=== PATIENT | male | born 1970 | race Caucasian/White ===

== ENCOUNTER 2017-08-26 11:51 | Emergency (ER) | payer OTHER ==
[~2017-08-26] VITALS: Ht 165.1 cm; Wt 120.2 kg
[~2017-08-26 11:51] MED LIST: CYCL10TA14; FURO20TA8; HYDROCODON-ACETAMINOPHN 10-325; METO50TA9; SPIR25TA13; TEMA30CA12
[2017-08-26 12:36] VITALS: BP 129/66
[2017-08-26] MEDS ORDERED: KETOROLAC 30 MG/ML VIAL IM ONE (14:05)
[2017-08-26 14:46] LABS: BASOPHILS # (AUTO) 0.1 K/uL (0.00-0.22); EOSINOPHILS # (AUTO) 0.1 K/uL (0-0.4); HEMATOCRIT 27.1 % (36-52); HEMOGLOBIN 8.4 g/dL (12.0-18.0); LYMPHOCYTES # (AUTO) 0.7 K/uL (2.0-11.5); MEAN CORPUSCULAR HEMOGLOBIN 23 pg (27-31); MEAN CORPUSCULAR HGB CONC 31 g/dL (33-37); MEAN CORPUSCULAR VOLUME 73 fL (80-94); MONOCYTES # (AUTO) 0.2 K/uL (0.8-1.0); NEUTROPHILS # (AUTO) 1.4 K/uL (1.8-7.7); PLATELET COUNT (AUTO) 69 K/uL (140-450); RED BLOOD CELL COUNT(AUTO) 3.71 MIL/uL (4.20-6.10); RED CELL DISTRIBUTION WIDTH 16.6 % (11.6-13.7); WHITE BLOOD COUNT (AUTO) 2.5 K/uL (4.8-10.8)
[2017-08-26 14:49] LABS: APPEARANCE,URINE CLEAR (CLEAR); BILIRUBIN,URINE NEGATIVE (NEGATIVE); BLOOD, URINE NEGATIVE (NEGATIVE); LEUKOCYTE ESTERASE ,URINE NEGATIVE (NEGATIVE); NITRITE, URINE NEGATIVE (NEGATIVE); UGLUCOSE NEGATIVE (NEGATIVE)
[2017-08-26] MEDS ORDERED: ACETAMINOPHEN 650 MG/20.3 ML UDC PO ONE (14:50)
[2017-08-26 14:52] LABS: COLOR,URINE YELLOW (YELLOW)
[2017-08-26 14:52] LABS: ANION GAP 8.1 (8-16); CARBON DIOXIDE 29.8 mmol/L (21-32); CREATININE 0.7 mg/dL (0.7-1.3); POTASSIUM 3.9 mmol/L (3.5-5.1)
[2017-08-26 14:58] LABS: ALBUMIN 2.9 g/dL (3.4-5.0); TOTAL BILIRUBIN 1.9 mg/dL (0.0-1.0)
[2017-08-26 15:29] VITALS: BP 120/89
== END 2017-08-26 15:29 | disposition left against medical advice (07) ==
LOC: MED 11:51
DX: M62.830 Muscle spasm of back (principal); Z79.899 Other long term (current) drug therapy
CPT/HCPCS: 36415; 80053; 81003; 83690; 85025; 96372; 99284; J1885

== ENCOUNTER 2018-01-30 14:02 | Observation (INO) | payer OTHER ==
[~2018-01-30] VITALS: Ht 162.6 cm; Wt 104.3 kg
[~2018-01-30 14:02] MED LIST changes: +METO50TA21; -METO50TA9
[2018-01-30 14:05] VITALS: BP 159/89
[2018-01-30] MEDS ORDERED: FUROSEMIDE 40 MG/4 ML VIAL IVP ONE (14:20)
[2018-01-30] MEDS ORDERED: SODIUM CHLORIDE FLUSH 10 ML SYR IVF ONE (14:20)
[2018-01-30] MEDS ORDERED: PROCHLORPERAZINE 10 MG/2 ML VIAL IVP ONE (14:35)
[2018-01-30] MEDS ORDERED: diphenhydrAMINE 50 MG/ML VIAL IVP ONE (14:35)
[2018-01-30 15:02] LABS: BASOPHILS % (AUTO) 1.1 % (0.0-2.0); EOSINOPHILS % (AUTO) 1.3 % (0.0-4.0); HEMATOCRIT 27.6 % (36-52); HEMOGLOBIN 8.3 g/dL (12.0-18.0); LYMPHOCYTES # (AUTO) 0.5 K/uL (2.0-11.5); MEAN CORPUSCULAR HEMOGLOBIN 19 pg (27-31); MEAN CORPUSCULAR HGB CONC 30 g/dL (33-37); MEAN CORPUSCULAR VOLUME 63.4 fL (80-94); MONOCYTES # (AUTO) 0.4 K/uL (0.8-1.0); MONOCYTES % (AUTO) 10.5 % (1.7-9.3); NEUTROPHILS # (AUTO) 2.5 K/uL (1.8-7.7); NEUTROPHILS % (AUTO) 72.1 % (42.2-75.2); PLATELET COUNT (AUTO) 89 K/uL (140-450); RED BLOOD CELL COUNT(AUTO) 4.36 MIL/uL (4.20-6.10); RED CELL DISTRIBUTION WIDTH 19.7 % (11.6-13.7); WHITE BLOOD COUNT (AUTO) 3.5 K/uL (4.8-10.8)
[2018-01-30 15:16] LABS: ANION GAP 9.6 (8-16); CARBON DIOXIDE 26.7 mmol/L (21-32); CREATININE 0.8 mg/dL (0.7-1.3); POTASSIUM 3.3 mmol/L (3.5-5.1)
[2018-01-30 15:22] LABS: ALBUMIN 3.1 g/dL (3.4-5.0); TOTAL BILIRUBIN 2.1 mg/dL (0.0-1.0)
[2018-01-30 15:37] LABS: PROTHROMBIN TIME 12.6 secs (10.8-13.4)
[2018-01-30] MEDS ORDERED: ONDANSETRON 4 MG/2 ML VIAL IVP PRN (16:35)
[2018-01-30] MEDS ORDERED: ACETAMINOPHEN 325 MG TAB PO PRN (16:35)
[2018-01-30] MEDS ORDERED: MORPHINE SULFATE 4 MG/ML SYR IVP PRN ×2 (16:35)
[2018-01-30] MEDS: LACTULOSE 20 GM/30 ML UDC PO SCH ×2 (17:00→21:08)
[2018-01-30] MEDS ORDERED: POTASSIUM CHLORIDE 10 MEQ TABER PO ONE ×2 (17:35→20:55)
[2018-01-30 17:36] VITALS: BP 149/78
[2018-01-30 20:00] VITALS: BP 144/88
[2018-01-30] MEDS: METOPROLOL 50 MG TAB PO SCH (21:08)
[2018-01-30] MEDS ORDERED: PIPERACILLIN/TAZOBACTAM 2.25 GM VIAL IV ONE (21:39)
[2018-01-30] MEDS ORDERED: TEMAZEPAM 15 MG CAP PO ONE (22:25)
[2018-01-30] MEDS: PIPER/TAZO 2.25GM/D5W PREMIX 50 ML IV SCH (23:23)
[2018-01-31] VITALS: BP 118/73
[2018-01-31] MEDS: PIPER/TAZO 2.25GM/D5W PREMIX 50 ML IV SCH (05:00)
[2018-01-31] MEDS ORDERED: PIPERACILLIN/TAZOBACTAM 2.25 GM VIAL IV ONE (05:16)
[2018-01-31 08:00] VITALS: BP 118/64
[2018-01-31 08:27] LABS: HEMOGLOBIN 8.1 g/dL (12.0-18.0); MEAN CORPUSCULAR VOLUME 64.1 fL (80-94); WHITE BLOOD COUNT (AUTO) 3.9 K/uL (4.8-10.8)
[2018-01-31 08:38] LABS: HEMATOCRIT 26.5 % (36-52); MEAN CORPUSCULAR HEMOGLOBIN 20 pg (27-31); MEAN CORPUSCULAR HGB CONC 31 g/dL (33-37); PLATELET COUNT (AUTO) 82 K/uL (140-450); RED BLOOD CELL COUNT(AUTO) 4.14 MIL/uL (4.20-6.10); RED CELL DISTRIBUTION WIDTH 18.5 % (11.6-13.7)
[2018-01-31 08:39] LABS: ALBUMIN 2.6 g/dL (3.4-5.0); CARBON DIOXIDE 26.6 mmol/L (21-32); CREATININE 0.8 mg/dL (0.7-1.3); POTASSIUM 3.6 mmol/L (3.5-5.1)
[2018-01-31] MEDS ORDERED: SPIRONOLACTONE 25 MG TAB PO SCH (09:00)
[2018-01-31] MEDS ORDERED: FUROSEMIDE 20 MG TAB PO SCH (09:00)
[2018-01-31] MEDS: LACTULOSE 20 GM/30 ML UDC PO SCH (09:01)
[2018-01-31] MEDS: METOPROLOL 50 MG TAB PO SCH (09:02)
[2018-01-31 09:28] LABS: BASOPHILS % (MANUAL) 0 % (0-2); EOSINOPHILS % (MANUAL) 4 % (0-4); LYMPHOCYTES % (MANUAL) 14 % (20-46); MONOCYTES % (MANUAL) 8 % (5-12)
[2018-01-31 09:46] LABS: TOTAL BILIRUBIN 2.1 mg/dL (0.0-1.0)
[2018-02-02 06:18] LABS: HEPATITIS B CORE AB TOTAL Negative (Negative); HEPATITIS B SURFACE ANTIBODY Non Reactive (.); HEPATITIS B SURFACE ANTIGEN Negative (Negative)
[2018-02-08 16:05] LABS: HEPATITIS C VIRUS ANTIBODY >11.0 s/co ratio (0.0-0.9)
== END 2018-01-31 13:45 | disposition left against medical advice (07) ==
LOC: MED 14:02 → MTU 16:37
PROVIDERS: ADMIT Hospitalist; ATTEND Hospitalist
DX: R14.0 Abdominal distension (gaseous) (principal); K74.60 Unspecified cirrhosis of liver; I10 Essential (primary) hypertension; D61.818 Other pancytopenia; Z87.891 Personal history of nicotine dependence
CPT/HCPCS: 36415; 76705; 80053; 82140; 85025; 85610; 85730; 86702; 86704; 86706; 86803; 87081; 87340; 96365; 96366; 96374; 96375; 99285; G0378; J0780; J1200; J1940; J2270; J2543; J7030; J7060; Q0092

== ENCOUNTER 2018-06-29 08:34 | Emergency (ER) | payer OTHER ==
[~2018-06-29] VITALS: Ht 167.6 cm; Wt 85.7 kg
[~2018-06-29 08:34] MED LIST changes: -SPIR25TA13; +SPIR25TA20
--- NOTE | 2018-06-29 08:42 | NUR ---
PT AMBULATES TO BED 5
--- NOTE | 2018-06-29 08:45 | NUR ---
48Y/F BIB DTR C/O SORE THROAT, FEVERS, HEADACHE X 2 DAYS. RESP EVEN AND UNLABORED, IN NAD. PT IS AAOX4; SKIN INTACT; BED DOWN; BEDRAIL UP X 1; ER MD AWARE AND NOTIFIED OF PT STATUS. MED HX:CIRRHOSIS, INSOMNIA RX: RESTORIL, LASIX, AND UNKNWON OTHERS
[2018-06-29 08:53] VITALS: BP 108/63
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
[2018-06-29 10:25] VITALS: BP 110/65
--- NOTE | 2018-06-29 10:25 | NUR ---
Patient discharged with v/s stable. Written and verbal after care instructions given and explained. Patient verbalized understanding. Ambulatory with steady gait. All questions addressed prior to discharge. Advised to follow up with PMD.
== END 2018-06-29 10:25 | disposition home or self-care (01) ==
LOC: MED 08:34
DX: J02.9 Acute pharyngitis, unspecified (principal); K74.60 Unspecified cirrhosis of liver; G47.00 Insomnia, unspecified; Z79.899 Other long term (current) drug therapy
CPT/HCPCS: 87081; 99284

== ENCOUNTER 2019-08-29 17:00 | Inpatient (IN) | payer OTHER ==
[~2019-08-29] VITALS: Ht 165.1 cm; Wt 97.5 kg
[2019-08-29 17:04] VITALS: BP 161/77
--- NOTE | 2019-08-29 17:07 | NUR ---
PT W/C ASSISTED TO BED 10.
--- NOTE | 2019-08-29 17:24 | NUR ---
IV INSERTED, UNABLE TO DRAWN LABS BEDSIDE
--- NOTE | 2019-08-29 17:25 | NUR ---
C/O SOB WITH NON-RADIATING MID CHEST PAIN 10/10, WORSENING X 4 HRS. SPO2 97% ON RA, TACHYPNEA, RR 28, EVEN AND MODERATELY LABORED. LUNG SOUNDS CLEAR BILATERALLY. PRODUCTIVE COUGH. PT TACHY AT 110. PT IS NON-DIAPHORETIC, DENIES N/V/D. NO EDEMA NOTED. PT ALERT AND RESPONSIVE. BED IS DOWN, LOCKED, BED RAIL X1, ERMS TO SEE PT. HX CIRRHOSIS, CHF, ANEMIA RX LACTULOSE, NORCO, BACLOFEN
--- NOTE | 2019-08-29 17:49 | NUR ---
Patient being evaluated by Dr. Epstein at bedside.
--- NOTE | 2019-08-29 18:02 | NUR ---
PT GIVEN URINAL FOR URINE SAMPLE
--- NOTE | 2019-08-29 18:06 | NUR ---
XRAY AT BEDSIDE
--- NOTE | 2019-08-29 18:10 | NUR ---
LAB AT BEDSIDE
[2019-08-29] MEDS ORDERED: VANCOMYCIN 1,000 MG in DEXTROSE 5% 250 ML IV ONE (18:15)
[2019-08-29] MEDS ORDERED: PIPERACILLIN/TAZOBACTAM 4.5 GM in DEXTROSE 5% 100 ML IV ONE (18:15)
[2019-08-29] MEDS ORDERED: VANCOMYCIN 1,000 MG VIAL ONE (18:23)
[2019-08-29] MEDS ORDERED: PIPERACILLIN/TAZOBACTAM 2.25 GM VIAL IV ONE (18:23)
--- NOTE | 2019-08-29 18:30 | NUR ---
ZOSYN AT STARTED IVBP
--- NOTE | 2019-08-29 18:42 | NUR ---
PT STATES HE WANTS TO USE OXYGEN. PT ON 96% RA. PER PTS REQUEST, STARTED ON 2 L NC
[2019-08-29 18:46] LABS: EOSINOPHILS # (AUTO) 0.2 K/uL (0-0.4); EOSINOPHILS % (AUTO) 1.8 % (0.0-4.0); HEMATOCRIT 29.7 % (36-52); HEMOGLOBIN 9.1 g/dL (12.0-18.0); LYMPHOCYTES # (AUTO) 0.3 K/uL (2.0-11.5); LYMPHOCYTES % (AUTO) 1.9 % (20.5-51.1); MEAN CORPUSCULAR HEMOGLOBIN 21 pg (27-31); MEAN CORPUSCULAR HGB CONC 31 g/dL (33-37); MEAN CORPUSCULAR VOLUME 68.9 fL (80-94); MONOCYTES # (AUTO) 1.1 K/uL (0.8-1.0); NEUTROPHILS # (AUTO) 12.1 K/uL (1.8-7.7); NEUTROPHILS % (AUTO) 88.3 % (42.2-75.2); PLATELET COUNT (AUTO) 112 K/uL (140-450); RED CELL DISTRIBUTION WIDTH 20.3 % (11.6-13.7); WHITE BLOOD COUNT (AUTO) 13.7 K/uL (4.8-10.8)
[2019-08-29 19:01] LABS: APPEARANCE,URINE CLEAR (CLEAR); BILIRUBIN,URINE NEGATIVE (NEGATIVE); COLOR,URINE ORANGE (YELLOW); LEUKOCYTE ESTERASE ,URINE NEGATIVE (NEGATIVE); NITRITE, URINE NEGATIVE (NEGATIVE); PH,URINE 6.5 (5.0-9.0); UGLUCOSE NEGATIVE (NEGATIVE)
[2019-08-29 19:02] LABS: BLOOD, URINE NEGATIVE (NEGATIVE)
[2019-08-29 19:05] LABS: ALBUMIN 3.2 g/dL (3.4-5.0); ANION GAP 13.6 (8-16); CARBON DIOXIDE 22.5 mmol/L (21-32); CREATININE 0.9 mg/dL (0.7-1.3); POTASSIUM 5.1 mmol/L (3.5-5.1)
--- NOTE | 2019-08-29 19:20 | NUR ---
RECEIVED REPORT FROM CLAUDIO SCHUSTER. TRANSFER OF CARE AT THIS TIME.
--- NOTE | 2019-08-29 19:51 | NUR ---
PT C/O 10/[address] DURAN MADE AWARE.
[2019-08-29] MEDS ORDERED: MORPHINE SULFATE 2 MG/ML SYR IVP ONE (20:35)
[2019-08-29] MEDS ORDERED: LACTULOSE 20 GM/30 ML UDC PO ONE (20:35)
--- NOTE | 2019-08-29 20:46 | NUR ---
PT RECEIVED MEDICATION FOR PAIN AT THIS TIME
--- NOTE | 2019-08-29 21:05 | NUR ---
PT STATES SOME RELIEF OF PAIN S/P MEDICATIONS. 02/25 AT THIS TIME
[2019-08-29] MEDS ORDERED: guaiFENesin DM 200/20 MG-10 ML 10 ML UDC PO PRN (21:20)
[2019-08-29] MEDS ORDERED: diphenhydrAMINE 50 MG/ML VIAL IVP PRN (21:20)
[2019-08-29] MEDS ORDERED: SODIUM PHOSPHATE 118 ML ENEM RC PRN (21:20)
[2019-08-29] MEDS ORDERED: BISACODYL 10 MG SUPP RC PRN (21:20)
[2019-08-29] MEDS ORDERED: DOCUSATE SODIUM 250 MG GELCAP PO PRN (21:20)
[2019-08-29] MEDS ORDERED: ONDANSETRON 4 MG/2 ML VIAL IVP PRN (21:20)
[2019-08-29] MEDS ORDERED: MAGNESIUM OXIDE 400 MG TAB PO PRN (21:20)
[2019-08-29] MEDS ORDERED: HYDROcodone/APAP 5/325 MG 1 TAB TAB PO PRN ×2 (21:20)
[2019-08-29] MEDS ORDERED: ACETAMINOPHEN 650 MG SUPP RC PRN (21:20)
[2019-08-29] MEDS ORDERED: POTASSIUM CHLORIDE 10 MEQ TABER PO PRN (21:20)
[2019-08-29] MEDS ORDERED: cloNIDine 0.1 MG TAB PO PRN (21:20)
[2019-08-29] MEDS ORDERED: MAG SULF 2000 MG/WATER PREMIX 50 ML IV PRN (21:20)
[2019-08-29] MEDS ORDERED: LORazepam 2 MG/ML VIAL IVP PRN (21:20)
[2019-08-29] MEDS ORDERED: ALUMINUM HYD/MAG/SIMETHICONE 30 ML UDC PO PRN (21:20)
[2019-08-29] MEDS ORDERED: ZOLPIDEM 5 MG TAB PO PRN (21:20)
[2019-08-29] MEDS ORDERED: ACETAMINOPHEN 325 MG TAB PO PRN (21:20)
--- NOTE | 2019-08-29 22:00 | NUR ---
ADMITTED 49 YEAR OLD, MALE FROM ER. RECEIVED REPORT FROM NURSE FAITH. PATIENT ALERT AND ORIENTED X4. NO APPARENT DISTRESS NOTED. SKIN INTACT. WITH TATTOOS ON BILATERAL LOWER EXTREMITIES. WITH 22G ON LEFT HAND ON SALINE LOCK. ORIENTED TO HOSPITAL ROUTINE, ENVIRONMENT AND CALL LIGHT. INTRODUCED SELF AND UPDATED BOARD. WILL CONTINUE TO MONITOR.
[2019-08-29] MEDS ORDERED: FERR325E14 PO (22:09)
[2019-08-29] MEDS ORDERED: LACT10SO1 PO (22:09)
--- NOTE | 2019-08-29 22:12 | NUR ---
Patient will be admitted to care of DR SINGLETON. Admited to [facility]. Will go to room 119A. Belongings list completed. Report to CLAUDIO ELLIOTT.
[2019-08-29] MEDS: MORPHINE SULFATE 2 MG/ML SYR IVP PRN (23:42)
--- NOTE | 2019-08-29 23:50 | NUR ---
PATIENT REQUESTED FOR PRN MEDICATIONS: ATIVAN AND MORPHINE. GIVEN ORDERED. WILL CONTINUE TO MONITOR.
[2019-08-30] VITALS: BP 125/57
--- NOTE | 2019-08-30 01:15 | NUR ---
PATIENT ASLEEP IN BED. NO APPARENT DISTRESS NOTED. BED ON LOW POSITION. CALL LIGHT WITHIN REACH. WILL CONTINUE TO MONITOR.
[2019-08-30] MEDS ORDERED: PIPERACILLIN/TAZOBACTAM 3.375 GM VIAL IV ONE (01:47)
[2019-08-30] MEDS ORDERED: PIPERACILLIN/TAZOBACTAM 3.375 GM in DEXTROSE 5% 50 ML IV SCH (02:00)
--- NOTE | 2019-08-30 02:10 | NUR ---
DUE MEDICATION GIVEN ORDERED. NO APPARENT DISTRESS NOTED. WILL CONTINUE TO MONITOR.
--- NOTE | 2019-08-30 03:17 | NUR ---
PATIENT ASLEEP IN BED. NO APPARENT DISTRESS NOTED. VISBLE CHEST RISE AND FALL NOTED. WILL CONTINUE TO MONITOR.
[2019-08-30] MEDS: MORPHINE SULFATE 2 MG/ML SYR IVP PRN ×3 (03:27→09:42)
[2019-08-30] MEDS: IPRATROPIUM 0.02% 0.5 MG/2.5 ML NEBU INH PRN ×2 (03:43→15:49)
[2019-08-30] MEDS: ALBUTEROL 0.083% 2.5 MG/3 ML NEBU INH PRN ×2 (03:43→15:49)
--- NOTE | 2019-08-30 03:45 | NUR ---
PATIENT ON 2L NASAL CANNULA, PULSE OX SAT 96%. PRN BREATHING TREATMENT ADMINISTERED DUE TO SOB. TOLERATED TX WELL WITHOUT ADVERSE SIDE EFFECTS. PATIENT CONTINUES TO PRESENT WITH SOB/INCREASED WORK OF BREATHING. DR. TINY GALO FOR BIPAP.
--- NOTE | 2019-08-30 04:00 | NUR ---
PRN BREATHING TREATMENTS GIVEN BY RT. CALLED TRIMMER CLIMBER DOCTOR AND SPOKE TO DR. FRANKS TO REQUEST AN ORDER FOR BIPAP. DOCTOR AGREED. RT MADE AWARE. WILL CONTINUE TO MONITOR.
--- NOTE | 2019-08-30 04:15 | NUR ---
PATIENT PLACED ON BIPAP PER ORDER. BIPAP CHECK DONE. BIPAP ALARMS ON AND AUDIBLE. SKIN PROTECTIVE GEL BARRIER IN PLACE. TOLERATED BIPAP WELL AT THIS TIME. PATIENT STATES COMFORT WITH EQUIPMENT. WILL CONTINUE TO MONITOR.
--- NOTE | 2019-08-30 05:46 | NUR ---
PATIENT AWAKE IN BED, RESTING. ON BIPAP. NO APPARENT DISTRESS NOTED. BED ON LOW POSITION. CALL LIGHT WITHIN REACH. WILL CONTINUE TO MONITOR.
--- NOTE | 2019-08-30 06:30 | NUR ---
PATIENT REQUESTED FOR PAIN MEDICATION FOR 7/10 PAIN ON LEFT ABDOMEN. GIVEN MORPHINE ORDERED. WILL CONTINUE TO MONITOR.
--- NOTE | 2019-08-30 06:34 | NUR ---
PT OFF BIPAP PLACED ON 3LNC WITH NO SOB
--- NOTE | 2019-08-30 07:15 | NUR ---
RECEIVED REPORT FROM CHEMISTRY LABORATORY TECHNICIAN NURSE FOR CONTINUITY OF CARE. PT IN STABLE CONDITION. RESPIRATIONS EVEN AND UNLABORED. IV INTACT AND PATENT. SAFETY MEASURES IN PLACE AND PATENT. BED IN LOW POSITION. CALL LIGHT AT BEDSIDE. WILL CONTINUE TO MONITOR.
[2019-08-30 08:00] VITALS: BP 157/91
[2019-08-30] MEDS: LACTULOSE 20 GM/30 ML UDC PO SCH ×3 (08:51→21:00)
[2019-08-30] MEDS: SPIRONOLACTONE 25 MG TAB PO SCH ×2 (08:52→18:20)
[2019-08-30] MEDS: METOPROLOL 50 MG TAB PO SCH ×2 (09:00→19:56)
[2019-08-30] MEDS ORDERED: FUROSEMIDE 20 MG/2 ML VIAL IVP SCH (09:00)
--- NOTE | 2019-08-30 09:00 | NUR ---
GAVE ORDERED DUE MEDICATIONS AT THIS TIME. PT REFUSED METOPROLOL 50MG AT THIS TIME. PT IN STABLE CONDITION. GAVE ORANGE JUICE AND APPLE JUICE PER PT REQUEST. BED IN LOW POSITION. CALL LIGHT AT BEDSIDE. WILL CONTINUE TO MONITOR.
--- NOTE | 2019-08-30 09:18 | NUR ---
PATIENT HAS BEEN SCREENED AND CATEGORIZED MODERATE NUTRITION RISK. PATIENT WILL BE SEEN WITHIN 3-5 DAYS OF ADMISSION. 09/01/19 09/03/[address]
--- NOTE | 2019-08-30 09:42 | NUR ---
GAVE PAIN MEDICATION PER PT REQUEST. BED IN LOW POSITION. CALL LIGHT AT BEDSIDE. WILL CONTINUE TO MONITOR.
[2019-08-30 10:09] LABS: PROTHROMBIN TIME 12.4 secs (10.8-13.4)
--- NOTE | 2019-08-30 10:40 | NUR ---
Vendor Quality Supervisor Note: Basic Screen: Yes High Risk DC Screen [place]: JAMIE Lemus Relationship: DAUGHTER Pre-Admission Living Arrangements: Lives with Other Prior ADL Independent Current Home Health Name/Tel: N/A Current DME/02 Name/Tel: N/A Current Hospice Name/Tel: N/A Current Dialysis Name/Tel: N/A Healthcare Decision Maker: Patient Advance Directive No - REFUSED Physician Orders for Life Sustaining Treatment Form No Patient/Family Have Educational Needs No Information Taught: Advance Directive Person Taught: Patient Teaching Tools: Verbal Factors Affecting Learning: None Participation Level: Refused Evaluation: Verbalizes Understanding Needs Additional Education: No Discipline: Case Mgt/Social Svcs Tentative Discharge Plan/Destination: No Needs Identified Will require assistance post discharge: No Referred to Manager Hair: No Tentative Discharge Plan Summary: Patient is a 49 year old male admitted for symptomatic ascites. Patient is admitted from home. Patient has past medical hx of CHF, anemia, and cirrhosis. SW verified demographics with patient. Patient stated that his PCP is Dr. Selvin Portillo and his last appointment was one month ago. Patient denies mental health history and SI/HI. 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 Patient reports no current substance use. SW provided education on advanced directive, but patient was not interested at this time. Patient's tentative plan after discharge is to return home. No further needs identified. Signature: PAO Constantino Date: Aug 30, 2019 Time: 10:39
--- NOTE | 2019-08-30 11:10 | NUR ---
PT LYING IN BED IN STABLE CONDITION. BED IN LOW POSITION. CALL LIGHT AT BEDSIDE. WILL CONTINUE TO MONITOR.
[2019-08-30] MEDS ORDERED: MORPHINE SULFATE 4 MG/ML SYR IVP PRN (12:30)
[2019-08-30] MEDS ORDERED: LORazepam 2 MG/ML VIAL IVP PRN (12:35)
[2019-08-30] MEDS ORDERED: NACL 0.9% 1,000 ML IV SCH (12:35)
[2019-08-30] MEDS: MORPHINE SULFATE 4 MG/ML SYR IVP PRN ×2 (12:41→21:07)
[2019-08-30] MEDS: PIPERACILLIN/TAZOBACTAM 3.375 GM in DEXTROSE 5% 50 ML IV SCH ×2 (12:47→19:55)
--- NOTE | 2019-08-30 13:00 | NUR ---
SIGNED CONSENT FOR CT ABDOMEN/PELVIS WITH CONTRAST AT THIS TIME.
--- NOTE | 2019-08-30 14:30 | NUR ---
NEW IV PLACED FOR CT ABDOMEN/PELVIS WITH CONTRAST. PT TOLERATED WELL
--- NOTE | 2019-08-30 15:48 | NUR ---
DISCHARGE PLANNIN YRS OLD MALE ADMITTED FROM HOME WITH A DX OF SYMPTOMATIC ASCITES. HAS A HX OF ETOH ABUSE , CIRRHOSIS . CT ABD/PELVIS ,NPO PAIN MEDS AND IVF TKO, DC PLAN TO GO HOME WHEN STABLE. Addendum: 08/31/19 at 0900 by Urvashi Michel DC PLANNING: CT ABD/PELVIS LARGE RT PLEURAL EFFUSION , US GUIDED THORACENTESIS ORDERED TODAY Addendum: 08/31/19 at 1344 by Urvashi Michel DC PLAN FOLLOW UP APPOINTMENT WITH PT'S PCP DONE WITH DR BLUE OFFICE AT [address] [facility] PHONE # [phone] ON Thursday AT 1030 AM . MIAH REMINDER PAPER GIVEN TO THE PATIENT.
--- NOTE | 2019-08-30 15:49 | NUR ---
CALLED TO PTS ROOM FOR PRN BREATHING TX PT SOB AND ASKED PT IF HE WOULD WANT TO GO BACK ON BIPAP AND HE STATED NO FAMILY AT BEDSIDE
--- NOTE | 2019-08-30 15:49 | NUR ---
RT AT BEDSIDE PT C/O SHORTNESS OF BREATH. SPO2 95% HR 91 WILL CONTINUE TO MONITOR.
[2019-08-30 16:00] VITALS: BP 155/89
--- NOTE | 2019-08-30 17:10 | NUR ---
CHARGE NURSE AT BEDSIDE PER PT REQUEST. PT IN STABLE CONDITION.
--- NOTE | 2019-08-30 17:29 | NUR ---
NOTIFIED DR. SINGLETON REGARDING RESULT OF CT ABDOMEN, HE ORDERED THORACENTESIS, NOTIFIED FUR DRUMMER RUSSELL.
--- NOTE | 2019-08-30 19:00 | NUR ---
RECEIVED PATIENT ON 3L NASAL CANNULA, PULES OX SAT 94%. PATIENT REFUSED PRN BREATHING TREATMENT AT THIS TIME. STATES "I WILL TAKE ONE LATER". WILL CONTINUE TO MONITOR.
--- NOTE | 2019-08-30 19:15 | NUR ---
GAVE REPORT TO SECURITY SCREENER NURSE FOR CONTINUITY OF CARE. PT IN STABLE CONDITION.
--- NOTE | 2019-08-30 21:07 | NUR ---
GIVEN MORPHINE IV PUSH, SLOWLY. PATIENT'S C/O PAIN ON THE SITE ASSESSES SITE CLOGGED AND FLUSHED W/ NS 1ST. AFTER ADMINISTRATION OF MORPHINE. I AGAIN FLUSHED THE IV SITE, NO WELLING NOTED, PATENT Addendum: 08/30/19 at 2231 by Geovanna Myles RN PT C/O OF ABD PAIN 06/28 MORPHINE 6 MG
--- NOTE | 2019-08-30 21:14 | NUR ---
PT REFUSED THE LACTULOSE, BECAUSE PT HAD A BM
--- NOTE | 2019-08-30 21:55 | NUR ---
PLACED ON BIPAP. GEL SKIN PROTECTIVE BARRIER IN PLACE. DONNING AND DOFFING OF EQUIPMENT TAUGHT. PATIENT REFUSED PRN BREATHING TREATMENT. WILL CONTINUE TO MONITOR.
--- NOTE | 2019-08-30 22:28 | NUR ---
CHECKED ON PATIENT PT ON BIPAP; SLEEPING COMFORTABLY, NO COMPLAINTS AT THIS TIME
--- NOTE | 2019-08-30 23:00 | NUR ---
BIPAP CHECK DONE. PATIENT ASKED TO BE TAKEN OFF BIPAP AT THIS TIME. BIPAP REMOVED. PLACED ON 3L NASAL CANNULA. WILL CONTINUE TO MONITOR.
[2019-08-31] VITALS: BP 151/73
--- NOTE | 2019-08-31 | NUR ---
AZAR BP 151/73 HR 98 WITH BP ROUTINE MEDS ORDERED
--- NOTE | 2019-08-31 | NUR ---
ORDERS PLACED BY DR. RYLAND CONTRERAS STABLE ; 98 , 125/ 85, 123, 94% 0/10 PAIN Addendum: 08/31/19 at 0816 by Geovanna Myles RN WRONG PATIENT DELETE NOTE
--- NOTE | 2019-08-31 00:56 | NUR ---
CHECKED ON PT STILL AT 3 LPM NASAL CANNULA O2 SAT 92%
[2019-08-31] MEDS: MORPHINE SULFATE 4 MG/ML SYR IVP PRN ×2 (02:36→09:21)
[2019-08-31] MEDS: PIPERACILLIN/TAZOBACTAM 3.375 GM in DEXTROSE 5% 50 ML IV SCH (03:58)
--- NOTE | 2019-08-31 03:58 | NUR ---
INSERTED A LINE ON THE LEFT AV G 2O. NO SWELLING NO BLEEDING, PATENT, FLUSHED WITH NS 10 ML
--- NOTE | 2019-08-31 03:58 | NUR ---
PTS IV DISLODGED BY PATIENT; PATIENT SLEPT ON HIS IVF HE SAID. INFORMED HIM TO TAKE CARE OF HIS IV SITE. "PATIENT SAYING THAT HE CAN'T HELP IT IF SLEEPS ON IT". EXPLAINED THE BENEFITS AND RISKS. PT REFUSES TO UNDERSTAND.
[2019-08-31] MEDS: ALBUTEROL 0.083% 2.5 MG/3 ML NEBU INH PRN (06:49)
[2019-08-31] MEDS: IPRATROPIUM 0.02% 0.5 MG/2.5 ML NEBU INH PRN (06:49)
--- NOTE | 2019-08-31 07:29 | NUR ---
PT AGAIN DISLODGED HIS IV LINE, TOOK THE CANNULA OUT, INTACT, BLEEDING ON THE BED, PLACED DIRECT PRESSURE ON THE IV SITE. AND CLEANED THE PT. REMOVED PRESSURE ON THE IV SITE. NO BLEEDING NOTED. PT VERBALIZING TO NURSES THAT WE ARE SLOW WITH OUR SERVICE. PT'S IV WAS DISLODGED BECAUSE HE SAID HE CAN'T HELP ON SLEEP ON IT. EXPLAINED THE RISKS AND BENEFITS.
--- NOTE | 2019-08-31 07:30 | NUR ---
REPORT RECEIVED FROM NIGHT NURSE. PATIENT IS AWAKE, ALERT AND ORIENTED X4. DENIES PAIN AT THIS TIME. PATIENT IS SCHEDULED TO HAVE THORACENTESIS. CONSENT IS SIGNED AND READY. WILL MONITOR PATIENT.
[2019-08-31 08:00] VITALS: BP 146/72
--- NOTE | 2019-08-31 08:30 | NUR ---
US THORACENTESIS PROCEDURE NOW WITH DR. SHEARER AT BEDSIDE AND HYDRO STATION OPERATOR. WILL MONITOR PATIENT.
[2019-08-31] MEDS: METOPROLOL 50 MG TAB PO SCH (09:18)
[2019-08-31] MEDS: LACTULOSE 20 GM/30 ML UDC PO SCH (09:18)
[2019-08-31] MEDS: SPIRONOLACTONE 25 MG TAB PO SCH (09:18)
[2019-08-31 09:33] LABS: BASOPHILS % (AUTO) 0.2 % (0.0-2.0); EOSINOPHILS # (AUTO) 0.1 K/uL (0-0.4); EOSINOPHILS % (AUTO) 0.5 % (0.0-4.0); HEMATOCRIT 28.9 % (36-52); HEMOGLOBIN 8.7 g/dL (12.0-18.0); LYMPHOCYTES # (AUTO) 0.3 K/uL (2.0-11.5); LYMPHOCYTES % (AUTO) 2.4 % (20.5-51.1); MEAN CORPUSCULAR HEMOGLOBIN 21 pg (27-31); MEAN CORPUSCULAR HGB CONC 30 g/dL (33-37); MEAN CORPUSCULAR VOLUME 69.7 fL (80-94); MONOCYTES # (AUTO) 0.8 K/uL (0.8-1.0); MONOCYTES % (AUTO) 7.2 % (1.7-9.3); NEUTROPHILS # (AUTO) 10.2 K/uL (1.8-7.7); NEUTROPHILS % (AUTO) 89.7 % (42.2-75.2); PLATELET COUNT (AUTO) 116 K/uL (140-450); RED BLOOD CELL COUNT(AUTO) 4.15 MIL/uL (4.20-6.10); WHITE BLOOD COUNT (AUTO) 11.4 K/uL (4.8-10.8)
--- NOTE | 2019-08-31 09:50 | NUR ---
RECEIVED ORDER TO SEND THORACENTESIS FLUID FOR CULTURE AND MRSA NARES TREATMENT.
[2019-08-31] MEDS ORDERED: MUPIROCIN CA NASAL 2% 1GM TUBE NS SCH (10:05)
[2019-08-31 10:13] LABS: POTASSIUM 5.1 mmol/L (3.5-5.1)
[2019-08-31 10:14] LABS: ANION GAP 14.2 (8-16); CARBON DIOXIDE 21.9 mmol/L (21-32); CREATININE 1.1 mg/dL (0.7-1.3)
[2019-08-31 10:46] LABS: TOTAL BILIRUBIN 3.1 mg/dL (0.0-1.0)
[2019-08-31] MEDS ORDERED: CHLORHEXADINE GLUC 2% CLOTH TP SCH (11:00)
[2019-08-31] MEDS ORDERED: MUPIROCIN 2% OINT 22 GM TUBE TP SCH (11:00)
--- NOTE | 2019-08-31 11:00 | NUR ---
DR. SINGLETON AT BEDSIDE.
--- NOTE | 2019-08-31 11:10 | NUR ---
NOTIFIED DR. SINGLETON IN REGARDS TO PATIENT'S POTASSIUM LEVEL OF 5.1, AND PATIENT CURRENTLY TAKING SPIRINOLACTONE DAILY. PER MD NO ORDERS.
--- NOTE | 2019-08-31 14:00 | NUR ---
DISCHARGED TODAY PER MD ORDERS. ALL DISCHARGE INSTRUCTIONS AND BELONGINGS GIVEN. IV REMOVED BLEEDING CONTROLLED. NAME BAND REMOVED.
== END 2019-08-31 14:00 | disposition home or self-care (01) | DRG 194 ==
LOC: MED 17:00 → MTU 21:09
PROVIDERS: ADMIT Internal Medicine Pulmonary Disease; ATTEND Internal Medicine Pulmonary Disease
PROC: 0W993ZZ Drainage of Right Pleural Cavity, Percutaneous Approach (ICD-10-PCS; principal; 2019-08-31)
DX: J90 Pleural effusion, not elsewhere classified (principal); J96.01 Acute respiratory failure with hypoxia; I50.9 Heart failure, unspecified; K70.31 Alcoholic cirrhosis of liver with ascites; R10.9 Unspecified abdominal pain; J98.11 Atelectasis; E66.9 Obesity, unspecified; Z68.35 Body mass index [BMI] 35.0-35.9, adult
CPT/HCPCS: 36415; 71045; 76705; 76942; 80053; 81003; 82140; 83605; 83690; 83880; 84484; 85025; 85610; 87040; 87070; 87075; 87081; 87205; 87804; 93005; 94640; 94660; 96365; 96375; 99285; J1940; J2001; J2060; J2270; J2543; J3370; J7030; J7060; J7613; J7644; Q0092; Q9967

== ENCOUNTER 2021-05-14 08:12 | Emergency (ER) | payer OTHER ==
[~2021-05-14] VITALS: Ht 165.1 cm; Wt 118.8 kg
[~2021-05-14 08:12] MED LIST changes: +FERR325E14 PO; -HYDROCODON-ACETAMINOPHN 10-325; +LACT-103 PO; -METO50TA21
[2021-05-14 08:20] VITALS: BP 144/71
--- NOTE | 2021-05-14 08:29 | NUR ---
Patient ambulated to bed 4 with a steady gait.
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
--- NOTE | 2021-05-14 08:45 | NUR ---
x-ray at the bedside
--- NOTE | 2021-05-14 08:45 | NUR ---
compounding pharmacy technician at bedside.
[2021-05-14] MEDS ORDERED: LIDOCAINE MPF 1% 10 MG/ML VIAL INJ ONE (08:50)
--- NOTE | 2021-05-14 09:20 | NUR ---
Dr. Milton at the bedside performing procedure.
--- NOTE | 2021-05-14 09:45 | NUR ---
Dr. Milton at the bedside performing procedure.
--- NOTE | 2021-05-14 10:11 | NUR ---
PT WOUND DRESSED WITH NON-ADHERENT GUAZE PAD AND WRAPPED WITH 1" GUAZE ROLL.
[2021-05-14] MEDS ORDERED: IBUP-2213 PO (10:37)
[2021-05-14 10:44] VITALS: BP 144/71
== END 2021-05-14 10:44 | disposition home or self-care (01) ==
LOC: MED 08:12
DX: S60.455A Superficial foreign body of left ring finger, initial encounter (principal); D64.9 Anemia, unspecified; I50.9 Heart failure, unspecified; Z79.899 Other long term (current) drug therapy; W34.010A Accidental discharge of airgun, initial encounter; Y93.89 Activity, other specified; Y92.89 Other specified places as the place of occurrence of the external cause; Y99.8 Other external cause status
CPT/HCPCS: 73140; 99284; J2001